=== PATIENT | male | born 1995 | race Caucasian/White ===

== ENCOUNTER 2018-12-17 12:34 | Emergency (ER) | payer MEDICAID ==
--- NOTE | 2018-12-17 14:03 | ED Physician Chart ---
ED Chief Complaint/HPI - Patient Information Date Seen:: 12/17/18 Time Seen:: 13:00 Chief Complaint:: bump redness l lower lateral arm History of Present Illness:: one day precede by itching sensation Allergies:: Allergies Allergy/AdvReac Type Severity Reaction Status Date / Time No Known Allergies Allergy Verified 12/17/18 12:42 Vitals:: Vital Signs - 8 hr 12/17/18 12:43 Temp 98.2 F HR 50 RR 16 BP 114/52 O2 Sat % 99 ED Review of Systems - Review of Systems General/Constitutional: No fever (slight redness) ED Past Medical History - Past Medical History Past Medical History: No significant medical hx Family Medical History - Family Member Mother History Unknown: Yes ED Physical Exam - Physical Examination General/Constitutional: Awake, Well-developed, well-nourished, Alert, GCS 15, Non-toxic appearing, Ambulatory Head: Atraumatic Eyes: Lids, conjuctiva normal Skin: No rash (significant bump 2/5 redness no lymphangitis) ED Septic Shock - . Is Septic Shock (SBP<90, OR Lactate>4 mmol\L) present?: No - <6hrs of presentation: Vital Signs: Vital Signs - 8 hr 12/17/18 12:43 Temp 98.2 F HR 50 RR 16 BP 114/52 O2 Sat % 99 ED Reassessment (Disposition) - Reassessment Reassessment Condition:: Unchanged (ice 24 red lines increase pain er return) - Aftercare/Follow up Instructions Aftercare/Follow-Up Instructions:: Counseled pt regarding lab results/diagnosis & need follow up - Patient Disposition Discharge/Transfer:: Home
== END 2018-12-17 13:04 | disposition home or self-care (01) ==
LOC: ER 12:34
DX: L29.9 Pruritus, unspecified (principal); M79.89 Other specified soft tissue disorders
CPT/HCPCS: Z7502